=== PATIENT | male | born 1970 | race Caucasian/White ===

== ENCOUNTER 2022-02-08 13:23 | Inpatient (IN) | payer BC ==
[2022-02-08] MEDS ORDERED: Cyclobenzaprine 10 MG Tab PO ONE (14:14)
[2022-02-08] MEDS ORDERED: Dexamethasone 10 MG/ML SDV IM ONE (14:14)
[2022-02-08 17:11] LABS: CARBON DIOXIDE,CO2 17.9 mmol/L (21.0-32.0); POTASSIUM,K 4.4 mmol/L (3.5-5.1)
[2022-02-08] MEDS ORDERED: Albuterol/Ipratropium 3.0-0.5 MG/3 ML Neb Soln NEB PRN (19:42)
[2022-02-08] MEDS ORDERED: Ondansetron 4 MG/2 ML SDV IVPUSH PRN (19:42)
[2022-02-08] MEDS ORDERED: Cyclobenzaprine 10 MG Tab PO PRN (19:52)
[2022-02-08] MEDS ORDERED: Morphine 2 MG/ML SYRINGE IVPUSH PRN (19:52)
[2022-02-08] MEDS: Lactated Ringers 1,000 ML IV SCH (20:52)
[2022-02-08] MEDS: Pantoprazole 40 MG in Sodium Chloride 0.9% 10 ML IVPUSH SCH (20:52)
[2022-02-09] MEDS: Dexamethasone 4 MG/ML SDV IVPUSH SCH ×5 (00:19→23:18)
[2022-02-09] MEDS: Lactated Ringers 1,000 ML IV SCH ×2 (05:00→19:09)
[2022-02-09 06:48] LABS: POTASSIUM,K 4.5 mmol/L (3.5-5.1)
[2022-02-09] MEDS: cefTRIAXone 1 GM in Sodium Chloride 0.9% 50 ML IV SCH (12:08)
[2022-02-09] MEDS: Pantoprazole 40 MG in Sodium Chloride 0.9% 10 ML IVPUSH SCH (20:57)
[2022-02-09] MEDS: Acetaminophen/HYDROcodone 325-10 MG Tab PO PRN (21:09)
[2022-02-10] MEDS: Dexamethasone 4 MG/ML SDV IVPUSH SCH ×2 (05:28→14:27)
[2022-02-10] MEDS: Acetaminophen/HYDROcodone 325-10 MG Tab PO PRN (05:28)
[2022-02-10] MEDS: Lactated Ringers 1,000 ML IV SCH (05:28)
[2022-02-10 06:15] LABS: CARBON DIOXIDE,CO2 24.3 mmol/L (21.0-32.0); POTASSIUM,K 4.3 mmol/L (3.5-5.1)
[2022-02-10] MEDS ORDERED: Dexamethasone 4 MG Tab PO ONE (11:24)
[2022-02-10] MEDS ORDERED: Levofloxacin 750 MG Tab PO SCH (11:30)
[2022-02-10] MEDS: cefTRIAXone 1 GM in Sodium Chloride 0.9% 50 ML IV SCH (14:28)
== END 2022-02-10 13:20 | disposition home health service (06) | DRG 861 ==
LOC: MW.ED 13:23 → MW.MS 18:05
PROVIDERS: ADMIT Student in an Organized Health Care Education/Training Program; ATTEND Student in an Organized Health Care Education/Training Program
DX: G89.3 Neoplasm related pain (acute) (chronic) (principal); M54.9 Dorsalgia, unspecified; R41.0 Disorientation, unspecified; C79.31 Secondary malignant neoplasm of brain; Z20.822 Contact with and (suspected) exposure to COVID-19; N39.0 Urinary tract infection, site not specified; R31.9 Hematuria, unspecified; C79.51 Secondary malignant neoplasm of bone; D72.829 Elevated white blood cell count, unspecified; T38.0X5A Adverse effect of glucocorticoids and synthetic analogues, initial encounter; Z88.0 Allergy status to penicillin; Z79.899 Other long term (current) drug therapy
CPT/HCPCS: 36415; 70551; 70551-26; 71045; 71045-26; 80048; 80053; 81001; 83735; 84100; 84443; 84484; 85025; 87086; 93005; 93010; 96372; 97163-GP; 97530-GP; 99285; A9270-GY; C9113; J0696; J1100; J2270; J2405; J3490; J7120; J8540; U0002

== ENCOUNTER 2022-03-02 21:10 | Inpatient (IN) | payer BC ==
[2022-03-02] MEDS ORDERED: Sodium Chloride 0.9% 10 ML Syringe FLUSH PRN (21:49)
[2022-03-02] MEDS ORDERED: Sodium Chloride 0.9% 1,000 ML IV ONE ×2 (21:49→23:26)
[2022-03-02] MEDS ORDERED: Sodium Chloride 0.9% 2.5 ML Syringe FLUSH PRN (21:49)
[2022-03-02 22:27] LABS: CARBON DIOXIDE,CO2 24.2 mmol/L (21.0-32.0); POTASSIUM,K 4.2 mmol/L (3.5-5.1)
[2022-03-02] MEDS ORDERED: fentaNYL 50 MCG/ML SDV IVPUSH ONE (23:00)
[2022-03-02] MEDS ORDERED: Ondansetron 4 MG/2 ML SDV IVPUSH ONE (23:01)
[2022-03-03] MEDS ORDERED: fentaNYL 50 MCG/ML SDV IVPUSH ONE (01:10)
[2022-03-03] MEDS ORDERED: Albuterol/Ipratropium 3.0-0.5 MG/3 ML Neb Soln NEB PRN (02:33)
[2022-03-03] MEDS ORDERED: Morphine 2 MG/ML SYRINGE IVPUSH PRN (02:33)
[2022-03-03] MEDS: Pantoprazole 40 MG in Sodium Chloride 0.9% 10 ML IVPUSH SCH (03:00)
[2022-03-03] MEDS: Heparin Sodium 5,000 Units/ML Vial SUBCUT SCH ×3 (03:00→18:00)
[2022-03-03] MEDS: Lactated Ringers 1,000 ML IV SCH (03:01)
[2022-03-03] MEDS: Dexamethasone 4 MG Tab PO SCH ×3 (06:24→21:00)
[2022-03-03 07:45] LABS: CARBON DIOXIDE,CO2 21.1 mmol/L (21.0-32.0)
[2022-03-03] MEDS ORDERED: Magnesium Sulfate/Water 2 GM in Premix Bag 1 BAG IV ONE (08:45)
[2022-03-03] MEDS ORDERED: Acetaminophen/HYDROcodone 325-10 MG Tab PO PRN (16:36)
[2022-03-03] MEDS ORDERED: Polyethylene Glycol 3350 Powder 17 GM Packet PO PRN (16:37)
[2022-03-03] MEDS ORDERED: Naloxone 0.4 MG/ML SDV IVPUSH PRN (17:03)
[2022-03-03] MEDS: fentaNYL 25 MCG/HR Transdermal Patch TRDERM SCH (17:32)
[2022-03-04] MEDS: Lactated Ringers 1,000 ML IV SCH ×3 (00:46→19:20)
[2022-03-04] MEDS: Cyclobenzaprine 10 MG Tab PO PRN ×3 (00:46→19:20)
[2022-03-04] MEDS: Heparin Sodium 5,000 Units/ML Vial SUBCUT SCH ×3 (03:26→17:45)
[2022-03-04] MEDS: Pantoprazole 40 MG in Sodium Chloride 0.9% 10 ML IVPUSH SCH (03:26)
[2022-03-04] MEDS: Dexamethasone 4 MG Tab PO SCH ×3 (06:12→21:02)
[2022-03-04 08:07] LABS: CARBON DIOXIDE,CO2 21.8 mmol/L (21.0-32.0); POTASSIUM,K 4.4 mmol/L (3.5-5.1)
[2022-03-04] MEDS: Al and Mag Hydroxide/Diphenhydramine/Lidocaine/Simethicone 237 ML Bottle PO PRN ×2 (14:51→21:26)
[2022-03-05] MEDS: Pantoprazole 40 MG in Sodium Chloride 0.9% 10 ML IVPUSH SCH (02:54)
[2022-03-05] MEDS: Heparin Sodium 5,000 Units/ML Vial SUBCUT SCH ×3 (02:54→17:57)
[2022-03-05] MEDS: Lactated Ringers 1,000 ML IV SCH (03:15)
[2022-03-05] MEDS: Cyclobenzaprine 10 MG Tab PO PRN (05:07)
[2022-03-05] MEDS: Dexamethasone 4 MG Tab PO SCH ×3 (05:08→21:52)
[2022-03-05 07:15] LABS: CARBON DIOXIDE,CO2 25.3 mmol/L (21.0-32.0); POTASSIUM,K 4.2 mmol/L (3.5-5.1)
[2022-03-05] MEDS: Acetaminophen/HYDROcodone 325-5 MG Tab PO PRN ×3 (08:46→21:52)
[2022-03-06] MEDS: Heparin Sodium 5,000 Units/ML Vial SUBCUT SCH ×3 (02:32→17:56)
[2022-03-06] MEDS: Pantoprazole 40 MG in Sodium Chloride 0.9% 10 ML IVPUSH SCH (02:34)
[2022-03-06] MEDS: Acetaminophen/HYDROcodone 325-5 MG Tab PO PRN ×3 (02:45→20:45)
[2022-03-06] MEDS: Dexamethasone 4 MG Tab PO SCH ×3 (06:08→23:00)
[2022-03-06 07:42] LABS: CARBON DIOXIDE,CO2 23.1 mmol/L (21.0-32.0); POTASSIUM,K 4.1 mmol/L (3.5-5.1)
[2022-03-06] MEDS: Nystatin Susp 100,000 Unit/ML 5 ML UD Cup PO SCH ×3 (11:12→23:09)
[2022-03-06] MEDS: Fluconazole 100 MG Tab PO SCH (11:12)
[2022-03-06] MEDS: fentaNYL 25 MCG/HR Transdermal Patch TRDERM SCH (17:16)
[2022-03-07] MEDS: Heparin Sodium 5,000 Units/ML Vial SUBCUT SCH ×3 (02:56→17:59)
[2022-03-07] MEDS: Pantoprazole 40 MG in Sodium Chloride 0.9% 10 ML IVPUSH SCH (02:58)
[2022-03-07] MEDS: Acetaminophen/HYDROcodone 325-5 MG Tab PO PRN ×3 (02:58→21:13)
[2022-03-07] MEDS: Nystatin Susp 100,000 Unit/ML 5 ML UD Cup PO SCH ×3 (05:46→17:59)
[2022-03-07] MEDS: Dexamethasone 4 MG Tab PO SCH ×3 (05:46→22:07)
[2022-03-07 06:42] LABS: CARBON DIOXIDE,CO2 25.7 mmol/L (21.0-32.0)
[2022-03-07] MEDS: Pantoprazole 40 MG Tab.CR PO SCH (07:25)
[2022-03-07] MEDS: Fluconazole 100 MG Tab PO SCH (10:25)
[2022-03-08] MEDS: Nystatin Susp 100,000 Unit/ML 5 ML UD Cup PO SCH ×4 (00:50→17:59)
[2022-03-08] MEDS: Heparin Sodium 5,000 Units/ML Vial SUBCUT SCH ×3 (02:28→17:59)
[2022-03-08] MEDS: Acetaminophen/HYDROcodone 325-5 MG Tab PO PRN (02:28)
[2022-03-08] MEDS: Pantoprazole 40 MG Tab.CR PO SCH (06:29)
[2022-03-08] MEDS: Dexamethasone 4 MG Tab PO SCH ×3 (06:30→21:14)
[2022-03-08 07:00] LABS: CARBON DIOXIDE,CO2 25.9 mmol/L (21.0-32.0); POTASSIUM,K 4.1 mmol/L (3.5-5.1)
[2022-03-08] MEDS: Fluconazole 100 MG Tab PO SCH (09:55)
[2022-03-09] MEDS: Nystatin Susp 100,000 Unit/ML 5 ML UD Cup PO SCH ×5 (00:36→23:43)
[2022-03-09] MEDS: Acetaminophen/HYDROcodone 325-5 MG Tab PO PRN ×3 (00:44→21:16)
[2022-03-09] MEDS: Heparin Sodium 5,000 Units/ML Vial SUBCUT SCH ×3 (02:58→18:17)
[2022-03-09 06:19] LABS: CARBON DIOXIDE,CO2 25.6 mmol/L (21.0-32.0); POTASSIUM,K 4.2 mmol/L (3.5-5.1)
[2022-03-09] MEDS: Pantoprazole 40 MG Tab.CR PO SCH (06:42)
[2022-03-09] MEDS: Dexamethasone 4 MG Tab PO SCH ×3 (06:42→22:19)
[2022-03-09] MEDS: Fluconazole 100 MG Tab PO SCH (08:36)
[2022-03-09] MEDS: fentaNYL 25 MCG/HR Transdermal Patch TRDERM SCH (17:04)
[2022-03-10] MEDS: Heparin Sodium 5,000 Units/ML Vial SUBCUT SCH ×3 (03:31→18:03)
[2022-03-10] MEDS: Acetaminophen/HYDROcodone 325-5 MG Tab PO PRN ×3 (03:43→23:26)
[2022-03-10 06:45] LABS: CARBON DIOXIDE,CO2 25.7 mmol/L (21.0-32.0)
[2022-03-10] MEDS: Pantoprazole 40 MG Tab.CR PO SCH (06:45)
[2022-03-10] MEDS: Dexamethasone 4 MG Tab PO SCH ×3 (06:45→21:37)
[2022-03-10] MEDS: Nystatin Susp 100,000 Unit/ML 5 ML UD Cup PO SCH ×4 (06:45→23:26)
[2022-03-10] MEDS: Fluconazole 100 MG Tab PO SCH (08:50)
[2022-03-11] MEDS: Heparin Sodium 5,000 Units/ML Vial SUBCUT SCH ×3 (01:50→18:24)
[2022-03-11] MEDS: Dexamethasone 4 MG Tab PO SCH ×3 (06:49→21:14)
[2022-03-11] MEDS: Pantoprazole 40 MG Tab.CR PO SCH (06:49)
[2022-03-11] MEDS: Nystatin Susp 100,000 Unit/ML 5 ML UD Cup PO SCH ×4 (06:49→23:55)
[2022-03-11 06:55] LABS: CARBON DIOXIDE,CO2 25.8 mmol/L (21.0-32.0); POTASSIUM,K 3.9 mmol/L (3.5-5.1)
[2022-03-11] MEDS: Fluconazole 100 MG Tab PO SCH (08:54)
[2022-03-11] MEDS: Acetaminophen/HYDROcodone 325-5 MG Tab PO PRN ×2 (12:53→19:53)
[2022-03-12] MEDS: Heparin Sodium 5,000 Units/ML Vial SUBCUT SCH ×3 (03:38→17:48)
[2022-03-12] MEDS: Nystatin Susp 100,000 Unit/ML 5 ML UD Cup PO SCH ×4 (06:37→23:25)
[2022-03-12] MEDS: Pantoprazole 40 MG Tab.CR PO SCH (06:38)
[2022-03-12] MEDS: Dexamethasone 4 MG Tab PO SCH ×3 (06:38→21:39)
[2022-03-12 07:11] LABS: CARBON DIOXIDE,CO2 26.4 mmol/L (21.0-32.0); POTASSIUM,K 3.7 mmol/L (3.5-5.1)
[2022-03-12] MEDS: Acetaminophen/HYDROcodone 325-5 MG Tab PO PRN ×3 (08:57→21:38)
[2022-03-12] MEDS: Fluconazole 100 MG Tab PO SCH (10:13)
[2022-03-12] MEDS: fentaNYL 25 MCG/HR Transdermal Patch TRDERM SCH (17:44)
[2022-03-13] MEDS: Heparin Sodium 5,000 Units/ML Vial SUBCUT SCH ×3 (03:33→18:19)
[2022-03-13] MEDS: Dexamethasone 4 MG Tab PO SCH ×3 (06:46→23:00)
[2022-03-13] MEDS: Pantoprazole 40 MG Tab.CR PO SCH (06:46)
[2022-03-13] MEDS: Nystatin Susp 100,000 Unit/ML 5 ML UD Cup PO SCH ×2 (06:47→12:55)
[2022-03-13] MEDS: Acetaminophen/HYDROcodone 325-5 MG Tab PO PRN ×2 (10:07→20:49)
[2022-03-14] MEDS: Heparin Sodium 5,000 Units/ML Vial SUBCUT SCH ×3 (03:23→18:53)
[2022-03-14] MEDS: Dexamethasone 4 MG Tab PO SCH ×4 (04:50→22:47)
[2022-03-14] MEDS: Acetaminophen/HYDROcodone 325-5 MG Tab PO PRN ×3 (04:50→20:17)
[2022-03-14] MEDS: Pantoprazole 40 MG Tab.CR PO SCH (06:45)
[2022-03-14] MEDS: Naproxen 500 MG Tab PO PRN (10:53)
[2022-03-14] MEDS: Ondansetron 4 MG/2 ML SDV IVPUSH PRN (20:17)
[2022-03-14] MEDS: Cyclobenzaprine 10 MG Tab PO PRN (22:49)
[2022-03-15] MEDS: Heparin Sodium 5,000 Units/ML Vial SUBCUT SCH ×3 (02:39→18:12)
[2022-03-15] MEDS: Pantoprazole 40 MG Tab.CR PO SCH (06:59)
[2022-03-15] MEDS: Dexamethasone 4 MG Tab PO SCH ×3 (06:59→21:57)
[2022-03-15] MEDS: Ondansetron 4 MG/2 ML SDV IVPUSH PRN (09:01)
[2022-03-15] MEDS ORDERED: Lactated Ringers 1,000 ML IV SCH (11:30)
[2022-03-15] MEDS: Acetaminophen/HYDROcodone 325-5 MG Tab PO PRN ×2 (12:18→20:30)
[2022-03-15] MEDS: fentaNYL 25 MCG/HR Transdermal Patch TRDERM SCH (16:34)
[2022-03-16] MEDS: Naproxen 500 MG Tab PO PRN (03:05)
[2022-03-16] MEDS: Heparin Sodium 5,000 Units/ML Vial SUBCUT SCH ×3 (03:05→17:50)
[2022-03-16] MEDS: Pantoprazole 40 MG Tab.CR PO SCH (06:30)
[2022-03-16] MEDS: Dexamethasone 4 MG Tab PO SCH ×3 (06:31→21:09)
[2022-03-16] MEDS: Acetaminophen/HYDROcodone 325-5 MG Tab PO PRN ×3 (06:31→21:09)
[2022-03-16] MEDS: Ondansetron 4 MG/2 ML SDV IVPUSH PRN (14:45)
[2022-03-16] MEDS ORDERED: Lactated Ringers 1,000 ML IV SCH (17:30)
[2022-03-17] MEDS: Cyclobenzaprine 10 MG Tab PO PRN ×2 (01:49→21:33)
[2022-03-17] MEDS: Acetaminophen/HYDROcodone 325-5 MG Tab PO PRN ×4 (01:49→18:42)
[2022-03-17] MEDS: Ondansetron 4 MG/2 ML SDV IVPUSH PRN (01:49)
[2022-03-17] MEDS: Heparin Sodium 5,000 Units/ML Vial SUBCUT SCH ×3 (01:50→18:29)
[2022-03-17] MEDS: Dexamethasone 4 MG Tab PO SCH ×3 (06:26→21:33)
[2022-03-17] MEDS: Pantoprazole 40 MG Tab.CR PO SCH (06:26)
[2022-03-17] MEDS: Polyethylene Glycol 3350 Powder 17 GM Packet PO SCH (11:42)
[2022-03-17] MEDS: Sennosides 8.6 MG Tab PO SCH (21:39)
[2022-03-18] MEDS: Pantoprazole 40 MG Tab.CR PO SCH ×3 (00:48→06:42)
[2022-03-18] MEDS: Heparin Sodium 5,000 Units/ML Vial SUBCUT SCH ×3 (01:47→18:58)
[2022-03-18] MEDS: Ondansetron 4 MG/2 ML SDV IVPUSH PRN ×3 (03:55→15:07)
[2022-03-18] MEDS: Acetaminophen/HYDROcodone 325-5 MG Tab PO PRN ×4 (04:04→22:25)
[2022-03-18] MEDS: Dexamethasone 4 MG Tab PO SCH ×3 (06:10→22:22)
[2022-03-18] MEDS: Polyethylene Glycol 3350 Powder 17 GM Packet PO SCH (10:00)
[2022-03-18] MEDS: fentaNYL 25 MCG/HR Transdermal Patch TRDERM SCH (17:00)
[2022-03-18] MEDS: Sennosides 8.6 MG Tab PO SCH (22:22)
[2022-03-19] MEDS: Heparin Sodium 5,000 Units/ML Vial SUBCUT SCH (02:34)
[2022-03-19] MEDS: Acetaminophen/HYDROcodone 325-5 MG Tab PO PRN (02:34)
[2022-03-19] MEDS: Dexamethasone 4 MG Tab PO SCH (06:31)
[2022-03-19] MEDS: Pantoprazole 40 MG Tab.CR PO SCH (06:31)
[2022-03-19] MEDS: Polyethylene Glycol 3350 Powder 17 GM Packet PO SCH (09:42)
[2022-03-19 09:47] LABS: CARBON DIOXIDE,CO2 22.3 mmol/L (21.0-32.0); POTASSIUM,K 4.2 mmol/L (3.5-5.1)
== END 2022-03-19 09:40 | disposition hospice, home (50) | DRG 861 ==
LOC: MW.ED 21:10 → MW.MS 03-03 01:09 → OBSVTOIN 03-05 07:37 → MW.MS 03-05 16:20
PROVIDERS: ADMIT Student in an Organized Health Care Education/Training Program; ATTEND Student in an Organized Health Care Education/Training Program
DX: G89.3 Neoplasm related pain (acute) (chronic) (principal); G93.6 Cerebral edema; C78.89 Secondary malignant neoplasm of other digestive organs; C79.31 Secondary malignant neoplasm of brain; C78.80 Secondary malignant neoplasm of unspecified digestive organ; Z66 Do not resuscitate; Z51.5 Encounter for palliative care; Z20.822 Contact with and (suspected) exposure to COVID-19; E86.0 Dehydration; R26.81 Unsteadiness on feet; C25.9 Malignant neoplasm of pancreas, unspecified; C79.51 Secondary malignant neoplasm of bone; C78.7 Secondary malignant neoplasm of liver and intrahepatic bile duct; B37.0 Candidal stomatitis; M54.9 Dorsalgia, unspecified; Z79.1 Long term (current) use of non-steroidal anti-inflammatories (NSAID); Z79.899 Other long term (current) drug therapy; Z88.0 Allergy status to penicillin
CPT/HCPCS: 36415; 71045; 71045-26; 80048; 80053; 81001; 82550; 82947; 83605; 83690; 83735; 84100; 84484; 85025; 87040; 87070; 87651-QW; 93005; 93010; 96361; 96374; 96375; 96376; 97110-GP; 97163-GP; 97164-GP; 97530-GP; 99220; 99226; 99231; 99232; 99233; 99239; 99284; 99285-25; A9270-GY; C9113; J1644; J2405; J3010; J3475; J3490; J7030; J7120; J8540; U0002